=== PATIENT | male | born 1995 | race Caucasian/White ===

== ENCOUNTER 2019-10-27 04:35 | Emergency (ER) | payer OTHER ==
[~2019-10-27] VITALS: Ht 182.9 cm; Wt 70.9 kg
[2019-10-27 04:44] VITALS: TEMP 97.5
[2019-10-27] MEDS ORDERED: VYVANSE10 MG (05:51)
[2019-10-27] MEDS ORDERED: ALLEGRA 60MG TA60 MG (05:51)
[2019-10-27 05:59] LABS: STREP SCREEN NEGATIVE
[2019-10-27 06:12] VITALS: BP 117/67; PULSE 65
== END 2019-10-27 06:12 | disposition home or self-care (01) ==
LOC: COL.ER 04:35
PROVIDERS: Emergency Medicine
DX: J02.9 Acute pharyngitis, unspecified (principal); F90.9 Attention-deficit hyperactivity disorder, unspecified type; Z20.828 Contact with and (suspected) exposure to other viral communicable diseases